=== PATIENT | female | born 1980 | race Caucasian/White ===

== ENCOUNTER 2019-04-22 01:25 | Emergency (ER) | payer BC ==
[2019-04-22] MEDS ORDERED: MORPHINE 4 MG/ML SYR ONE (02:27)
[2019-04-22] MEDS ORDERED: ONDANSETRON 4 MG/2 ML VIAL ONE (02:27)
[2019-04-22 04:29] LABS: Albumin 3.9 g/dL (3.4-5.0); Bilirubin Direct 0.5 mg/dL (0-0.2); Bilirubin Total 1.1 mg/dL (0.2-1.0); Potassium 4.3 mmol/L (3.5-5.1); Protein, Total 7.5 g/dL (6.4-8.2)
[2019-04-22 04:36] LABS: Basophils % 0.3 % (0-1.3); Lymphocytes % 8.3 % (15.3-44.8); MPV 8.7 fL (7.6-11.3); RBC Red Blood Cell Count 4.28 M/uL (3.86-4.86)
[2019-04-22 04:46] LABS: Urine Blood NEGATIVE (NEG); Urine Glucose NEGATIVE (NEG); Urine Protein NEGATIVE (NEG)
[2019-04-22 04:52] LABS: Urine Appearance CLOUDY; Urine Bilirubin NEGATIVE (NEG); Urine Blood NEGATIVE (NEG); Urine Color YELLOW; Urine Glucose NEGATIVE (NEG); Urine Microscopic Reflex ORDER UMIC; Urine Protein NEGATIVE (NEG); Urine Specific Gravity 1.015 (1.005-1.030)
[2019-04-22 04:53] LABS: Urine Amorphous Sediment 2+ /HPF (NONE SEEN); Urine Culture Reflex Order NOT NEEDED
[2019-04-22 04:54] LABS: Urine Bacteria <20 /HPF (<20); Urine RBC NONE SEEN /HPF (NONE SEEN)
--- NOTE | 2019-04-22 08:27 | RAD REPORT ---
EXAM DESCRIPTION: US - Abdomen Exam Limited - 04/22/2019 7:23 am CLINICAL HISTORY: Abdominal pain. COMPARISON: None. FINDINGS: The gallbladder is filled with stones. Gallbladder wall appears mildly thickened The common bile duct was not well visualized but probably is within normal limits in caliber IMPRESSION: Cholelithiasis. Mild thickening of the gallbladder wall may indicate cholecystitis
[2019-04-22] MEDS ORDERED: LORAZEPAM 1 MG TABLET ONE (08:49)
--- NOTE | 2019-04-22 09:20 | ER ---
Nurse's Notes [facility] Name: Negrita Justin Age: 38 yrs Sex: Female : 1980 Arrival Date: 04/22/2019 Time: 01:36 Bed 6 Private MD: Diagnosis: Cholelithiasis Presentation: 04/22 02:00 Presenting complaint: Patient states: abdominal pain (RUQ) started 9 PM last night, I rr5 took ibuprofen 800 mg tablet but it did not relieved it. It gets worse now. I feel nauseated , bloated, and my abdomen is tight. I was diagnosed with gall stone before. denies urine problem and vomiting. 02:00 Transition of care: patient was not received from another setting of care. Onset of rr5 symptoms was April 21, 2019 at 21:00. Risk Assessment: Do you want to hurt yourself or someone else? Patient reports no desire to harm self or others. Initial Sepsis Screen: Does the patient meet any 2 criteria? No. Patient's initial sepsis screen is negative. Does the patient have a suspected source of infection? No. Patient's initial sepsis screen is negative. Care prior to arrival: Medication(s) given: Motrin, 800 mg. 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 - Social history:: Smoking status: Patient/guardian denies using tobacco, Patient/guardian denies using alcohol, street drugs. - Ebola Screening: : Patient negative for fever greater than or equal to 101.5 degrees Fahrenheit, and additional compatible Ebola Virus Disease symptoms Patient denies exposure to infectious person Patient denies travel to an Ebola-affected area in the 21 days before illness onset. Screenin:40 Abuse screen: Denies threats or abuse. Denies injuries from another. Nutritional rr5 screening: No deficits noted. Tuberculosis screening: No symptoms or risk factors identified. Fall Risk IV access (20 points). Total Almaguer Fall Scale indicates No Risk (0-24 pts). Assessment: 02:00 General: Appears in no apparent distress. uncomfortable, Behavior is calm, cooperative, rr5 appropriate for age. 02:00 Pain: Complains of pain in right upper quadrant Pain radiates to back Pain currently is rr5 8 out of 10 on a pain scale. Quality of pain is described as aching, Pain began gradually, Is intermittent. Neuro: Level of Consciousness is awake, alert, obeys commands, Oriented to person, place, time, situation, Appropriate for age. Cardiovascular: Capillary refill < 3 seconds Patient's skin is warm and dry. Respiratory: Airway is patent Respiratory effort is even, unlabored, Respiratory pattern is regular, symmetrical. GI: Abdomen is round Abd is soft and non tender Reports upper abdominal pain, nausea, diagnose with gall stone. : No signs and/or symptoms were reported regarding the genitourinary system. Denies burning with urination, pain. EENT: No signs and/or symptoms were reported regarding the EENT system. Derm: Skin is intact, Skin temperature is warm. Musculoskeletal: Circulation, motion, and sensation intact. Capillary refill < 3 seconds. 03:10 Reassessment: Patient appears in no apparent distress at this time. Patient is alert, rr5 oriented x 3, equal unlabored respirations, skin warm/dry/pink. Patient states feeling better. Patient states symptoms have improved. Pain: Pain currently is 2 out of 10 on a pain scale. 04:00 Reassessment: Patient appears in no apparent distress at this time. Patient is alert, rr5 oriented x 3, equal unlabored respirations, skin warm/dry/pink. reassess by ED provider advised for ultrasound. patient agreed to wait till morning around 0630 for the ultrasound procedure. Patient states feeling better. Patient states symptoms have improved. 04:48 Reassessment: Patient appears in no apparent distress at this time. eyes closed rr5 breathing spontaneously at room air vitally stable. 05:30 Reassessment: Patient appears in no apparent distress at this time. Patient and/or rr5 family updated on plan of care and expected duration. Pain level reassessed. Patient is alert, oriented x 3, equal unlabored respirations, skin warm/dry/pink. 06:40 Reassessment: Patient appears in no apparent distress at this time. Patient and/or rr5 family updated on plan of care and expected duration. Pain level reassessed. Patient is alert, oriented x 3, equal unlabored respirations, skin warm/dry/pink. went to restroom voided freely. awaiting for ultrasound procedure Patient denies pain at this time. Patient states feeling better. Patient states symptoms have improved. 07:40 Reassessment: Patient appears in no apparent distress at this time. Patient and/or tw2 family updated on plan of care and expected duration. Pain level reassessed. Patient is alert, oriented x 3, equal unlabored respirations, skin warm/dry/pink. Patient states feeling better. Patient states symptoms have improved. 08:36 Reassessment: Patient appears in no apparent distress at this time. Patient and/or tw2 family updated on plan of care and expected duration. Pain level reassessed. Patient is alert, oriented x 3, equal unlabored respirations, skin warm/dry/pink. Patient states feeling better. 08:59 Reassessment: provider at bedside at this time. tw2 Vital Signs: 02:00 BP 139 / 92; Pulse 110; Resp 18; Temp 98.6; Pulse Ox 100% ; Weight 79.38 kg; Height 5 rr5 ft. 3 in. (160.02 cm); Pain 8/10; 03:00 BP 113 / 77; Pulse 71; Resp 16; Pulse Ox 100% ; Pain 2/10; rr5 04:00 BP 124 / 78; Pulse 80; Resp 16; Temp 98.5; Pulse Ox 100% on R/A; rr5 04:49 BP 109 / 69; Pulse 69; Resp 15; Pulse Ox 99% ; rr5 06:30 BP 94 / 61; Pulse 65; Resp 17; Pulse Ox 99% ; Pain 0/10; rr5 07:38 BP 117 / 66; Pulse 76; Resp 17; Pulse Ox 100% on R/A; tw2 08:36 BP 108 / 62; Pulse 73; Resp 17; Pulse Ox 100% on R/A; tw2 02:00 Body Mass Index 31.00 (79.38 kg, 160.02 cm) rr5 ED Course: 01:36 Patient arrived in ED. ds1 02:00 Arm band placed on right wrist. rr5 02:05 Patient has correct armband on for positive identification. Placed in gown. Bed in low rr5 position. Call light in reach. Side rails up X2. Pulse ox on. NIBP on. 02:30 Inserted saline lock: 22 gauge in right antecubital area, using aseptic technique. rr5 ,using aseptic technique. by anny dispensary technician Blood collected. 03:25 Emiliano Aparicio, RN is Primary Nurse. rr5 03:28 Triage completed. rr5 03:33 Eduardo Colindres MD is Attending Physician. gs 07:06 Patient taken to ultrasound. via wheelchair. sv 07:09 Abdomen Limited US In Process Unspecified. EDMS 08:37 Primary Nurse role handed off by Emiliano Aparicio, RN tw2 08:37 Isabell Hudson RN is Primary Nurse. tw2 Administered Medications: 02:38 Drug: Zofran 4 mg Route: IVP; Site: right antecubital; rr5 03:40 Follow up: Response: No adverse reaction rr5 02:40 Drug: morphine 4 mg {Note: rass 0.} Route: IVP; Site: right antecubital; rr5 03:40 Follow up: Response: No adverse reaction; RASS: Alert and Calm (0) rr5 Outcome: 09:19 Discharge ordered by . ma2 09:43 Patient left the ED. ss Signatures: Dispatcher [employer] Kathy Abernathy, RN Kamla Brown RN RN Cecille Goncalves ds1 Saige Castillo RN RN Isabell Hudson RN RN tw2 Eduardo Colindres MD MD gs Alzahri, Mohammad, MD MD [facility] Emiliano Aparicio, KALEIGH RN rr5 Corrections: (The following items were deleted from the chart) 03:27 03:27 Presenting complaint: [facility]
--- NOTE | 2019-04-22 09:20 | EDPHYS ---
Physician Documentation [facility] Name: Negrita Justin Age: 38 yrs Sex: Female : 1980 Arrival Date: 04/22/2019 Time: 01:36 Bed 6 Private MD: ED Physician Eduardo Colindres HPI: 04/22 04:21 This 38 yrs old Female presents to ER via Ambulatory with complaints of gs Abdominal Pain. 04:21 The patient presents with abdominal pain in the right upper quadrant. Onset: The gs symptoms/episode began/occurred last night. The symptoms do not radiate. Associated signs and symptoms: Pertinent positives: nausea. The symptoms are described as sharp. Modifying factors: The symptoms are alleviated by nothing, the symptoms are aggravated by food. Severity of pain: At its worst the pain was severe in the emergency department the pain has improved mildly. The patient has experienced similar episodes in the past, a few times. The patient has not recently seen a physician. 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 - Social history:: Smoking status: Patient/guardian denies using tobacco, Patient/guardian denies using alcohol, street drugs. - Ebola Screening: : Patient negative for fever greater than or equal to 101.5 degrees Fahrenheit, and additional compatible Ebola Virus Disease symptoms Patient denies exposure to infectious person Patient denies travel to an Ebola-affected area in the 21 days before illness onset. ROS: 04:21 All other systems are negative. gs Exam: 04:21 Head/Face: Normocephalic, atraumatic. Eyes: Pupils equal round and reactive to light, gs extra-ocular motions intact. Lids and lashes normal. Conjunctiva and sclera are non-icteric and not injected. Cornea within normal limits. Periorbital areas with no swelling, redness, or edema. ENT: Nares patent. No nasal discharge, no septal abnormalities noted. Tympanic membranes are normal and external auditory canals are clear. Oropharynx with no redness, swelling, or masses, exudates, or evidence of obstruction, uvula midline. Mucous membranes moist. Neck: Trachea midline, no thyromegaly or masses palpated, and no cervical lymphadenopathy. Supple, full range of motion without nuchal rigidity, or vertebral point tenderness. No Meningismus. Chest/axilla: Normal chest wall appearance and motion. Nontender with no deformity. No lesions are appreciated. Cardiovascular: Regular rate and rhythm with a normal S1 and S2. No gallops, murmurs, or rubs. Normal PMI, no JVD. No pulse deficits. Respiratory: Lungs have equal breath sounds bilaterally, clear to auscultation and percussion. No rales, rhonchi or wheezes noted. No increased work of breathing, no retractions or nasal flaring. Back: No spinal tenderness. No costovertebral tenderness. Full range of motion. Skin: Warm, dry with normal turgor. Normal color with no rashes, no lesions, and no evidence of cellulitis. MS/ Extremity: Pulses equal, no cyanosis. Neurovascular intact. Full, normal range of motion. Neuro: Awake and alert, GCS 15, oriented to person, place, time, and situation. Cranial nerves II-XII grossly intact. Motor strength 5/5 in all extremities. Sensory grossly intact. Cerebellar exam normal. Normal gait. 04:21 Constitutional: The patient appears alert, awake. 04:21 Abdomen/GI: Palpation: moderate abdominal tenderness, in the right upper quadrant, rebound tenderness, is not appreciated. Vital Signs: 02:00 BP 139 / 92; Pulse 110; Resp 18; Temp 98.6; Pulse Ox 100% ; Weight 79.38 kg; Height 5 rr5 ft. 3 in. (160.02 cm); Pain 8/10; 03:00 BP 113 / 77; Pulse 71; Resp 16; Pulse Ox 100% ; Pain 2/10; rr5 04:00 BP 124 / 78; Pulse 80; Resp 16; Temp 98.5; Pulse Ox 100% on R/A; rr5 04:49 BP 109 / 69; Pulse 69; Resp 15; Pulse Ox 99% ; rr5 06:30 BP 94 / 61; Pulse 65; Resp 17; Pulse Ox 99% ; Pain 0/10; rr5 07:38 BP 117 / 66; Pulse 76; Resp 17; Pulse Ox 100% on R/A; tw2 08:36 BP 108 / 62; Pulse 73; Resp 17; Pulse Ox 100% on R/A; tw2 02:00 Body Mass Index 31.00 (79.38 kg, 160.02 cm) rr5 MDM: 03:33 Patient medically screened. 04:21 Differential diagnosis: cholecystitis, Cholelithiasis, gastroesophageal reflux disease, gs Peptic Ulcer Disease. Data reviewed: vital signs, nurses notes, lab test result(s), radiologic studies. Counseling: I had a detailed discussion with the patient and/or guardian regarding: the historical points, exam findings, and any diagnostic results supporting the discharge/admit diagnosis. Response to treatment: the patient's symptoms have markedly improved after treatment. 09:18 ED course: lab unremarkable except elevated alk phos and alt, she will f/u with pcp, no ma2 acute bell . 04/22 03:25 Order name: Urine Dipstick--Ancillary (enter results); Complete Time: 06:57 mw2 04/22 03:25 Order name: Urine --Ancillary (enter results); Complete Time: 06:57 mw2 04/22 04:01 Order name: Abdomen Limited US 04/22 04:31 Order name: Basic Metabolic Panel; Complete Time: 06:57 EDMS 04/22 04:31 Order name: Liver (Hepatic) Function; Complete Time: 06:57 EDMS 04/22 04:31 Order name: Lipase; Complete Time: 06:57 EDMS 04/22 04:39 Order name: CBC with Automated Diff EDWA 04/22 04:40 Order name: Urinalysis; Complete Time: 06:57 EDMS 04/22 04:55 Order name: Urine Microscopic Only; Complete Time: 06:57 EDMS 04/22 03:32 Order name: IV Saline Lock; Complete Time: 03:32 rr5 04/22 03:32 Order name: Labs collected and sent; Complete Time: 03:33 rr5 04/22 04:27 Order name: Urine Dipstick-Ancillary (obtain specimen); Complete Time: 04:27 rr5 04/22 04:27 Order name: Urine Test (obtain specimen); Complete Time: 04:27 rr5 Administered Medications: 02:38 Drug: Zofran 4 mg Route: IVP; Site: right antecubital; rr5 03:40 Follow up: Response: No adverse reaction rr5 02:40 Drug: morphine 4 mg {Note: rass 0.} Route: IVP; Site: right antecubital; rr5 03:40 Follow up: Response: No adverse reaction; RASS: Alert and Calm (0) rr5 Disposition: 04/22/19 09:19 Discharged to Home. Impression: Cholelithiasis. - Condition is Stable. - Prescriptions for Tylenol- Codeine #3 300-30 mg Oral Tablet - take 2 tablet by ORAL route every 6 hours As needed; 30 tablet. - Work release form, Medication Reconciliation Form, Thank You Letter, Antibiotic Education, Prescription Opioid Use form. - Follow up: Private Physician; When: Tomorrow; Reason: Continuance of care. Signatures: Dispatcher [employer] EDSaige Lowery RN RN ss Eduardo Colindres MD MD gs Alzahri, Mohammad, MD MD ma2 Emiliano Aparicio RN RN rr5 Corrections: (The following items were deleted from the chart) 04:54 04:25 BASIC METABOLIC PANEL+C.LAB.BRZ ordered. EDMS EDMS 04:54 04:25 CBC+H.LAB.BRZ ordered. EDMS EDMS 04:54 04:25 Creatinine for Radiology+C.LAB.BRZ ordered. EDMS EDMS 04:54 04:25 HEPATIC FUNCTION+C.LAB.BRZ ordered. EDMS EDMS 04:54 04:25 LIPASE+C.LAB.BRZ ordered. EDWA EDMS 09:43 09:19 04/22/2019 09:19 Discharged to Home. Impression: Cholelithiasis. Condition is ss Stable. Forms are Work release form, Medication Reconciliation Form, Thank You Letter, Antibiotic Education, Prescription Opioid Use. Follow up: Private Physician; When: Tomorrow; Reason: Continuance of care. ma2
== END 2019-04-22 09:43 | disposition home or self-care (01) ==
LOC: ER 01:25
DX: K80.20 Calculus of gallbladder without cholecystitis without obstruction (principal)
CPT/HCPCS: 85025; 80048; 36415; 81025; 80076; 83690; 76705; J2405; 81003; 81015; 96374; 96375; 99284

== ENCOUNTER 2019-05-01 07:03 | Day surgery (SDC) | payer BC ==
[2019-04-30 14:50] LABS: Absolute Lymphocytes (CBC) 2.1 K/uL (0.7-4.9); Basophils % 0.4 % (0-1.3); Hematocrit 42.9 % (36.0-45.0); MPV 8.9 fL (7.6-11.3); RBC Red Blood Cell Count 4.63 M/uL (3.86-4.86)
[2019-04-30 15:15] LABS: Potassium 4.3 mmol/L (3.5-5.1)
[2019-04-30 15:35] LABS: Albumin 4.3 g/dL (3.4-5.0); Bilirubin Direct 0.2 mg/dL (0-0.2); Bilirubin Total 0.6 mg/dL (0.2-1.0); Protein, Total 8.2 g/dL (6.4-8.2)
[2019-05-01] MEDS ORDERED: Ringers Lactate 1,000 ML IV ONE (07:38)
[2019-05-01] MEDS ORDERED: CEFOXITIN/SWI 1gm 1 GM/10 ML SYR ONE (07:38)
[2019-05-01] MEDS ORDERED: FENTANYL CITR 100 MCG/2 ML ONE ×2 (07:52→08:48)
[2019-05-01] MEDS ORDERED: ROCURONIUM 50 MG/5 ML VIAL IV ONE (07:53)
[2019-05-01] MEDS ORDERED: PROPOFOL 200 MG/20 ML VIAL IV ONE (07:53)
[2019-05-01] MEDS ORDERED: MIDAZOLAM HCL 2 MG/2 ML INJ ONE (07:53)
[2019-05-01] MEDS ORDERED: LIDOCAINE 1% MPF 5 ML VIAL ONE (07:53)
[2019-05-01] MEDS ORDERED: ONDANSETRON 4 MG/2 ML VIAL ONE ×2 (08:04→08:44)
[2019-05-01] MEDS ORDERED: GLYCOPYRROLATE 0.2 MG/ML SYR ONE (08:43)
[2019-05-01] MEDS ORDERED: KETOROLAC 30 MG/ML INJ ONE (08:43)
[2019-05-01] MEDS ORDERED: NEOSTIGMINE 1 MG/ML -10 ML VIAL ONE (08:44)
[2019-05-01] MEDS ORDERED: Mastisol Adhesive Liq ONE (09:09)
[2019-05-01] MEDS ORDERED: PROMETHAZINE 25 MG/ML VIAL ONE (09:34)
[2019-05-01] MEDS: HYDROMORPHONE HCL 1 MG/ML INJ ONE ×4 (09:36→09:58)
[2019-05-01] MEDS ORDERED: HYDROCODONE/APAP 7.5/325 MG TAB ONE (10:47)
--- NOTE | 2019-05-01 21:42 | OP ---
Date of Procedure: 05/01/2019 Surgeon: Florentin Borrego MD University Counselor: TOM Sands Preoperative Diagnoses: Chronic cholecystitis and cholelithiasis. Postoperative Diagnoses: Chronic cholecystitis and cholelithiasis. Procedure: Laparoscopic cholecystectomy. Estimated Blood Loss: Minimal. Specimen: Gallbladder. Findings: As above. Anesthesia: General. Complications: None. Disposition: Patient tolerated the procedure, in stable condition, and taken to Recovery in good gen eral condition. Procedure In Detail: Patient was brought to the OR and placed in the supine position. General anest hesia was begun. Patient was prepped and draped in the usual sterile fashion. Marcaine 0.5% was inf iltrated locally. A 15-blade was used to make a 1 cm supraumbilical midline incision. Subcutaneous tissue divided. Fascia was identified and divided. #1 Vicryl stay suture was placed. Peritoneal ca vity was entered with sharp and blunt dissection. A 12 mm trocar was placed into the peritoneal cavi ty under direct vision. Pneumoperitoneum was established. Three 5 mm trocars placed, 1 in the epiga strium just to the right of midline, 2 in the right subcostal region. Laparoscopy revealed chronic i nflammation of the gallbladder. Fundus retracted superiorly. Infundibulum was identified and retrac daniel inferolaterally. Cystic duct and cystic artery were clearly identified with blunt dissection. C lips were placed. Both structures divided. Cautery was used to remove the gallbladder from the live r bed. Bleeding on the liver bed was controlled with cautery. The gallbladder was retrieved through the umbilicus via an EndoCatch bag. Right upper quadrant was irrigated. Effluent was clear. No ev idence of bleeding or bile leakage appreciated. Subsequently, all trocars were removed under direct vision. #1 Vicryl was used to close the fascial defect. Subcutaneous wound was irrigated. Bleeding controlled with cautery. 3-0 chromic was used to approximate the subcutaneous tissue and close the skin. Sterile dressing was applied. Patient was awakened and taken to Recovery in good general cond ition. /MODL Voice ID: [id number] Report ID: [id number]
--- NOTE | 2019-05-01 21:48 | DS ---
Date of Discharge: 05/01/2019 Hospital Course: The patient will go to Day Surgery and home when stable. Disposition: Home. Condition: Stable. Discharge Instructions: Resume home meds and diet. Activity as tolerated. No heavy lifting. Remov e outer dressing in 2 days. Shower. Keep wound clean and dry. Keep Steri-Strips on at all times. Tylenol No. 3 one tablet p.o. q.4 p.r.n. pain. Incentive spirometry as ordered. MITZY/EMMANUEL Voice ID: [id number] Report ID: [id number]
== END 2019-05-01 12:17 | disposition home or self-care (01) ==
LOC: OR 07:03
PROVIDERS: ATTEND Surgery
PROC: 0FT44ZZ Resection of Gallbladder, Percutaneous Endoscopic Approach (ICD-10-PCS; principal; 2019-05-01 08:45)
DX: K80.10 Calculus of gallbladder with chronic cholecystitis without obstruction (principal)
CPT/HCPCS: 85025; 80048; 36415; 82150; 84703; 80076; 88304; 47562; J2704; J2710; J2550; J2250; J3010 ×2; J1170 ×2; J2405 ×2

== ENCOUNTER 2022-06-09 13:27 | Emergency (ER) | payer BC ==
--- OUTSIDE RECORDS SUMMARY | 2022-06-09 13:30 | XMS REPORT | Continuity of Care Document ---
:1980 Author Organization [facility] t Address [address] [place] [address] Care Team Providers Name Role Phone KHADIJAH MOCTEZUMA Primary Care Physician Unavailable SHASTA LASSITER Attending Clinician Unavailable Shasta Lassiter MD Attending Clinician [phone] RUBEN NAVARRO Attending Clinician Unavailable Ruben Mercer Attending Clinician NATY Attending Clinician Unavailable RUBEN NAVARRO Admitting Clinician Unavailable NATY Admitting Clinician Unavailable Payers Payer Name Policy Type Policy Number Effective Date Expiration Date S tera BCBS [facility] [id number] 2018 00:00:00 [place] [id number] 2018 00:[place]:00 [place] Problems Condition Condition Condition Status Onset Resolution Last Treating Co mments Source Name Details Category Date Date Treatment Clinician Date Uterine Uterine Problem Active [place] leiomyoma Leiomyoma 10-22 da 00:00: [facility] No known No known Disease Unive rs active active ity of problems problems [facility] Allergies, Adverse Reactions, Alerts Allergy Allergy Status Severity Reaction(s) Onset Inactive Treating Comm ents Source Name Type Date Date Clinician NO KNOWN Drug Active Univers ALLERGIE Class ity of S [facility] Social History Social Habit Start Date Stop Date Quantity Comments Source Exposure to 2022-04-10 2022-04-20 Unable to assess Univers ity of SARS-CoV-2 00:00:00 10:49:00 [place] [facility] (event) Branch Sex Ass[birth year] At [birth year] Universit y of 00:00:00 00:00:00 [facility] Smoking Status Start Date Stop Date Source Never Smoker Saige [facility] Tobacco smoking consumption [facility] Medical unknown Branch Medications Ordered Filled Start Stop Current Ordering Indication Dosage Frequency Signature Comments Components Source Medication Medication Date Date Medication? Clinician (SIG) Name Name NaCl 0.9% No 1000mL at 999 Uni vers (NS) bolus 04-20 mL/hr, ity of infusion 16:15: 17:26 1,000 mL, [place] as 1,000 mL 00 :00 IV Medical Infusion, Branch ONCE, 1 dose, On Sat04/20/22 at 1115, STAT acetaminoph 2021- No 1000mg 1,000 mg, Univers en 04-20 Oral, ity of (TYLENOL) 16:15: 16:27 ONCE, 1 [place] tablet 00 :00 dose, On Medical 1,000 mg Fri Branch 04/20/22 at 1115, ELIJAH diphenhydrA 2021- No 25mg 25 mg, Uni vers MINE 04-20 Slow IV ity of (BENADRYL) 16:15: 16:24 Push, [place] injection 00 :00 ONCE, 1 Medical 25 mg dose, On Branch Sat04/20/22 at 1115, STAT metoclopram 2021- No 10mg 10 mg, Uni vers lisa HCl 04-20 Slow IV ity of (REGLAN) 16:15: 16:26 Push, [place] injection 00 :00 ONCE, 1 Medical 10 mg dose, On Branch Sat04/20/22 at 1115, ELIJAH dexamethaso 2020-08- No 10mg 10 mg, Uni vers ne 1-10 11-10 Intramuscu ity of (DECADRON 20:30: 21:35 lar, ONCE, [place] PHOSPHATE) 00 :00 1 dose, On Med ical injection Wed Branch 10 mg 07/05/21 at 1430, STAT methocarbam 2020-08 Yes [id number] 500mg Take 1 Univers oL 1-10 tablet by ity of (ROBAXIN) 00:00: mouth 4 [place] 500 mg 00 (four) Medical tablet times Branch daily as needed for Pain (scale 7-10). Diclofenac 2020-08 Yes [id number] Apply to Univers Sodium 1-10 area(s) 2 ity of (VOLTAREN) 00:00: (two) [place] 1 % gel 00 times Medical daily. Branch ibuprofen 2020-08 Yes [id number] 800mg Take 1 U nivers 800 mg 1-10 tablet by ity of tablet 00:00: mouth [place] 00 every 8 Medical (eight) Branch hours as needed for Pain (scale 4-6). methocarbam 2020-08 Yes [id number] 500mg Take 1 Univers oL 1-10 tablet by ity of (ROBAXIN) 00:00: mouth 4 [place] 500 mg 00 (four) Medical tablet times Branch daily as needed for Pain (scale 7-10). Diclofenac 2020-08 Yes [id number] Apply to Univers Sodium 1-10 area(s) 2 ity of (VOLTAREN) 00:00: (two) [place] 1 % gel 00 times Medical daily. Branch ibuprofen 2020-08 Yes [id number] 800mg Take 1 U nivers 800 mg 1-10 tablet by ity of tablet 00:00: mouth [place] 00 every 8 Medical (eight) Branch hours as needed for Pain (scale 4-6). celecoxib celecoxib No celecoxib [place] 100 mg 100 mg 100 mg da capsule capsule capsule [facility] TAKE 1 TAKE 1 TAKE 1 al CAPSULE BY CAPSULE BY CAPSULE BY Health MOUTH TWICE MOUTH TWICE MOUTH Outreac DAILY DAILY TWICE h DAILY Program lorazepam lorazepam No lorazepam [place] 0.5 mg 0.5 mg 0.5 mg da tablet Take tablet Take tablet [facility] 2 tablets 2 tablets Take 2 al by oral by oral tablets by Hea lth route as route as oral route O [facility] needed. needed. as needed. h Program Mirena 20 Mirena 20 No 1device Mirena 20 [place] mcg/24 mcg/24 (s) mcg/24 da hours (7 hours (7 hours (7 Epi scop yrs) 52 mg yrs) 52 mg yrs) 52 mg al intrauterin intrauterin intrauteri Health e device e device ne device Ou treac Take 1 Take 1 Take 1 h device by device by device by Program intrauterin intrauterin intrauteri e route. e route. ne route. sumatriptan sumatriptan No sumatripta [place] 100 mg 100 mg n 100 mg da tablet TK 1 tablet TK 1 tablet TK [facility] T PO PRN T PO PRN 1 T PO PRN a l FOR FOR FOR Health HEADACHE. HEADACHE. HEADACHE. Outreac MAXIMUM 1 T MAXIMUM 1 T MAXIMUM 1 h PER DAY. PER DAY. T PER DAY. P rogram Vitamin D Vitamin D No Vitamin D [place] [facility] Vital Signs Vital Name Observation Time Observation Value Comments Source Systolic blood 2022-04-20 15:51:00 148 mm[Hg] Univer sity of [facility] Diastolic blood 2022-04-20 15:51:00 105 mm[Hg] [facility] rate 2022-04-20 15:51:00 105 /min [facility] Body temperature 2022-04-20 15:51:00 36.44 Mel [facility] Respiratory rate 2022-04-20 15:51:00 18 /min [facility] Body weight 2022-04-20 15:51:00 85.276 kg [facility] Oxygen saturation in 2022-04-20 15:51:00 99 /min University of Arterial blood by [facility] Pulse oximetry [place] Systolic blood 2021-07-05 21:33:39 150 mm[Hg] Univer sity of [facility] Diastolic blood 2021-07-05 21:33:39 95 mm[Hg] [facility] rate 2021-07-05 21:33:39 87 /[facility] rate 2021-07-05 21:33:39 16 /min [facility] Oxygen saturation in 2021-07-05 21:33:39 100 /min [place] of Arterial blood by [facility] Pulse oximetry [place] Body temperature 2021-07-05 18:28:00 37.17 Mel [facility] Body weight 2021-07-05 18:28:00 85.276 [facility] BP Diastolic 2021-07-04 00:00:00 101 mm[Hg] [place] [facility] Height 2021-07-04 00:00:00 63 [in_i] [place] [facility] BMI (Body Mass 2021-07-04 00:00:00 33.5 kg/m2 [place] financial 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 Index) [facility] BP Systolic 2021-07-04 00:00:00 143 mm[Hg] [place] [facility] Body Weight 2021-07-04 00:00:00 189 [lb_av] [place] [facility] Height 2020-10-17 00:00:00 63 [in_i] [place] [facility] BMI (Body Mass 2020-10-17 00:00:00 34.4 kg/m2 [place] financial 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 Index) [facility] BP Systolic 2020-10-17 00:00:00 134 mm[Hg] [place] [facility] Body Weight 2020-10-17 00:00:00 194 [lb_av] [place] [facility] BP Diastolic 2020-10-17 00:00:00 90 mm[Hg] [place] [facility] Height 2020-06-30 00:00:00 63 [in_i] [place] [facility] BMI (Body Mass 2020-06-30 00:00:00 34.5 kg/m2 [place] financial 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 Index) [facility] Body Weight 2020-06-30 00:00:00 195 [lb_av] [place] [facility] Procedures Procedure Date / Time Performing Clinician Source Performed CONSENT/REFUSAL FOR 2022-04-20 15:49:42 [facility] DIAGNOSIS AND TREATMENT [facility] XR CERVICAL SPINE 3 VW 2021-07-05 19:34:59 Ruben Navarro [facility] NOTICE OF PRIVACY 2021-07-05 17:42:01 Doctor Luigi, [facility] PRACTICES [facility] MAMMO, screening, digital, 2021-07-04 00:00:00 [place] [facility] US, transvaginal 2020-10-17 00:00:00 [facility] MAMMO, screening, 2020-06-30 00:00:00 [place] [facility] Cholecystectomy 2019-04-26 00:00:00 [place] [facility] Delivery [place] [facility] Plan of Care Planned Activity Planned Date Details Comments Source Diagnostic Test 2021-07-04 cytology report, thin [place] Pending 00:00:00 prep, smear or [facility] scraping, cervical or Outrea ch Program vaginal [code = cytology report, thin prep, smear or scraping, cervical or vaginal] Diagnostic Test 2021-07-04 CBC w/ auto diff [place] Pending 00:00:00 [code = CBC w/ auto [facility] diff] [facility] Diagnostic Test 2021-07-04 CMP, serum or plasma [place] Pending 00:00:00 [code = CMP, serum or [facility] plasma] Outreach [facility] Diagnostic Test 2021-07-04 HIV 1+2 AB + HIV 1 [place] financial 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 Pending 00:00:00 p24 Ag, qualitative [facility] immunoassay, serum Outreach Program [code = HIV 1+2 AB + HIV 1 p24 Ag, qualitative immunoassay, serum] Diagnostic Test 2021-07-04 RPR (rapid plasma [place] Pending 00:00:00 reagin), serum [code [facility] = RPR (rapid plasma Outreach Program reagin), serum] Diagnostic Test 2021-07-04 HBsAg (hepatitis B [place] financial 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 Pending 00:00:00 surface Ag), EIA, [facility] serum [code = HBsAg [facility]reach Program (hepatitis B surface Ag), EIA, serum] Diagnostic Test 2021-07-04 TSH + free T4, serum [place] Pending 00:00:00 [code = TSH + free [facility] T4, serum] Outreach Progra m Diagnostic Test 2021-07-04 lipid panel, serum [place] financial 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 Pending 00:00:00 [code = lipid panel, [facility] serum] Outreach Pro[facility] Diagnostic Test 2021-07-04 vitamin D, [place] Pending 00:00:00 25-hydroxy, total, [facility] serum [code = vitamin Outrea ch Program D, 25-hydroxy, total, serum] Diagnostic Test 2021-07-04 HbA1c (hemoglobin [place] Pending 00:00:00 A1c), blood [code = [facility] HbA1c (hemoglobin Outreach P rogram A1c), blood] Encounters Start End Encounter Admission Attending Care Care Encounter Source Date/Time Date/Time Type Type Clinicians Facility Department ID 2022-04-20 2022-04-20 [facility] [id number] Univers 10:53:00 12:58:00 , SHASTA [facility] 2022-04-20 2022-04-20 [facility] [id number] Univers 10:53:00 12:58:00 , Shasta AGUIRRE [id number] i ty of Georgina VERGARA [id number] [facility] [id number] [place] [id number] Branch 2021-07-05 2021-07-[address] [facility] ERT [id number] Univers 12:30:00 16:08:00 RUBEN martinez [facility] 2021-07-05 2021-07-05 Emergency [facility] [id number] Univers 12:30:00 16:08:00 Ruben AGUIRRE [id number] i ty JAI [id number] [facility] [id number] [place] [id number] Branch 2021-07-04 2021-07-04 Outpatient EMANUEL_YANIV MARIE [id number] [place] 11:39:00 11:39:00 SSA [id number] [facility] 2021-07-04 2021-07-04 Thea MARIE [place] - [id number] M [place] 00:00:00 00:00:00 Sabiha Posada, [facility] CUSTOMER ADVISOR SPECIALIST: [address] [facility] [address], MARKETING OPERATIONS COORDIN[place] [facility] [place] [id number] Progr am , Ph. 2021-07-02 2021-07-02 Outpatient LISTER_MELI MEHOP MEHOP [id number] [place] 12:10:00 12:10:00 SSA [id number] [facility] 2021-05-03 2021-05-03 Outpatient LISTER_MELI MEHOP MEHOP [id number] [place] 12:08:00 12:08:00 SSA [id number] [facility] 2020-10-17 2020-10-17 Outpatient LISTER_MELI MEHOP MEHOP 104 [place] 02:21:00 02:21:00 SSA [id number] [facility] 2020-10-17 2020-10-17 Thea MARIE [place] - [id number] M [place] 00:00:00 00:00:00 Sabiha Saige Posada, [facility] CUSTOMER ADVISOR SPECIALIST: [address], MARKETING OPERATIONS [place]ORDIN[place] [facility] [place] [id number] Progr am , Ph. 2020-06-30 2020-06-30 Outpatient LISTER_MELI MEHOP MEHOP [place] 04:46:00 04:46:00 SSA [id number] [facility] 2020-06-30 2020-06-30 Outpatient LISTER_MELI MEHOP MEHOP 56 [place] 04:46:00 04:46:00 SSA [id number] da [facility] 2020-06-30 2020-06-30 Thea MARIE [place] - [id number] M at[place] 00:00:00 00:00:00 Sabiha Saige Posada, [facility] CUSTOMER ADVISOR SPECIALIST: [address], MARKETING OPERATIONS [place]IN[place] [facility] [place] [id number] Progr am , Ph. 2020-05-31 2020-05-31 Outpatient LISTER_MELI MEHOP MEHOP [id number] [place] 01:23:00 01:23:00 [facility] [id number] da [facility] Program Results This patient has no known results.
[2022-06-09] MEDS ORDERED: KETOROLAC 30 MG/ML INJ ONE (15:08)
[2022-06-09] MEDS ORDERED: HYDROCODONE/APAP 10/325 TAB ONE (15:08)
--- NOTE | 2022-06-09 15:14 | RAD REPORT ---
EXAM DESCRIPTION: CTSpine Lumbar Wo Con06/09/2022 3:01 pm CLINICAL HISTORY: Back pain with radiculopathy COMPARISON: None TECHNIQUE: Computed axial tomography lumbar spine was obtained with coronal and sagittal reconstruct ion. All CT scans are performed using dose optimization technique as appropriate and may include automated exposure control or mA/KV adjustment according to patient size. FINDINGS: No fracture is seen. No dislocation is noted. Small disc bulge L4-5. Small right paracentral disc herniation suspected L5-S1. IMPRESSION: Negative for a lumbar fracture. Small right paracentral disc herniation is suspected L5-S1. Nonemergent MRI is recommended for furthe r evaluation
--- NOTE | 2022-06-09 15:15 | RAD REPORT ---
EXAM DESCRIPTION: RADSacrum And Ggeyrf8106/09/2022 2:53 pm CLINICAL HISTORY: Back pain FINDINGS: No fracture is seen
[2022-06-09 16:10] LABS: Urine Blood Trace-lysed (Negative); Urine Glucose Negative (Negative); Urine Protein Negative (Negative); Urine Specific Gravity 1.015 (1.005-1.030); Urine pH 5.5 (5.0-7.0)
[2022-06-09 16:32] LABS: Urine Bacteria <20 /HPF (<20); Urine Mucus Slight /HPF (None Seen); Urine WBC Clump Rare /HPF (None Seen)
[2022-06-09] MEDS ORDERED: dexAMETHasone 10 MG/ML VIAL ONE (16:41)
[2022-06-09 16:43] LABS: Urine Specific Gravity/Preg 1.015 (1.005-1.030)
--- NOTE | 2022-06-09 16:44 | ER ---
Nurse's Notes [facility] Name: Negrita Justin Age: 41 yrs Sex: Female : 1980 Arrival Date: 06/09/2022 Time: 13:32 Bed 17 Private MD: Diagnosis: Low back pain Presentation: 06/09 14:02 Chief complaint: Patient states: "I have been seeing a chiropractor weekly for low back hb pain, today it got way worse after moving a piece of furniture." Reports severe low back pain that radiates to bilateral upper thighs and difficulty urinating. Coronavirus screen: At this time, the client does not indicate any symptoms associated with coronavirus-19. Ebola Screen: No symptoms or risks identified at this time. Initial Sepsis Screen: Does the patient meet any 2 criteria? No. Patient's initial sepsis screen is negative. Does the patient have a suspected source of infection? No. Patient's initial sepsis screen is negative. Risk Assessment: Do you want to hurt yourself or someone else? Patient reports no desire to harm self or others. Onset of symptoms was June 09, 2022. 14:02 Method Of Arrival: Wheelchair hb 14:02 Acuity: ZURI 3 hb Historical: - Allergies: 14:04 No Known Allergies; hb - PMHx: 14:04 gall stone; hb - PSHx: 14:04 section; Cholecystectomy; hb - Immunization history:: Adult Immunizations up to date. - Social history:: Smoking status: Patient denies any tobacco usage or history of. Screenin:36 Abuse screen: Denies threats or abuse. Denies injuries from another. Nutritional mb8 screening: No deficits noted. Tuberculosis screening: No symptoms or risk factors identified. Fall Risk None identified. Assessment: 14:35 Pain: Complains of pain in sacrum Pain currently is 10 out of 10 on a pain scale. mb8 Quality of pain is described as aching, Is continuous. Neuro: No deficits noted. Cardiovascular: No deficits noted. Respiratory: No deficits noted. GI: No deficits noted. : No deficits noted. Musculoskeletal: Circulation, motion, and sensation intact. Capillary refill < 3 seconds, Range of motion: intact in all extremities, Tenderness present in sacrum. 16:23 Reassessment: Patient and/or family updated on plan of care and expected duration. Pain mb8 level reassessed. Patient is alert, oriented x 3, equal unlabored respirations, skin warm/dry/pink. Patient still in pain when moving, BUTTONER aware. Vital Signs: 14:02 BP 155 / 76; Pulse 105; Resp 16; Temp 98.4; Pulse Ox 100% on R/A; Weight 85.28 kg; hb Height 5 ft. 3 in. (160.02 cm); Pain 10/10; 16:23 BP 128 / 86; Pulse 81; Resp 16; Pulse Ox 99% ; Pain 8/10; mb8 14:02 Body Mass Index 33.30 (85.28 kg, 160.02 cm) hb ED Course: 13:32 Patient arrived in ED. am2 13:35 Ellyn Quevedo FNP-C is PHCP. kb 13:35 Giorgio Parra MD is Attending Physician. kb 14:04 Triage completed. hb 14:04 Arm band placed on. hb 14:28 Skip Beauchamp, RN is Primary Nurse. mb8 14:36 Patient has correct armband on for positive identification. Bed in low position. Call mb8 light in reach. Side rails up X2. Client placed on continuous cardiac and pulse oximetry monitoring. NIBP monitoring applied. 14:36 No provider procedures requiring assistance completed. mb8 14:54 Sacrum And Coccyx XRAY In Process Unspecified. EDMS 15:03 CT Lumbar Spine Wo Con In Process Unspecified. EDMS 17:25 Patient did not have IV access during this emergency room visit. mb8 Administered Medications: 15:10 Drug: Ketorolac 30 mg Route: IM; Site: right deltoid; mb8 16:37 Follow up: Response: No adverse reaction mb8 15:10 Drug: [place] (HYDROcodone-acetaminophen) 10 mg-325 mg 1 tabs Route: PO; mb8 16:37 Follow up: Response: No adverse reaction mb8 16:47 Drug: Decadron (dexamethasone) 10 mg Route: IM; Site: left ventrogluteal; kc6 Medication: 14:36 VIS not applicable for this client. mb8 Outcome: 16:43 Discharge ordered by . kb 17:25 Discharged to home ambulatory. mb8 17:25 Condition: stable 17:25 Discharge instructions given to patient, Instructed on discharge instructions, follow up and referral plans. no drinking with medication, no driving heavy equipment, medication usage, Demonstrated understanding of instructions, follow-up care, medications, Prescriptions given X 2. 17:25 Patient left the ED. mb8 Signatures: Dispatcher [employer] EDMS Ellyn Quevedo, NREMT-C BETO-Ciara Pastor, RN RN Brandie Donahue Kaitlyn RN RN kc6 Skip Beauchamp RN RN mb8
--- NOTE | 2022-06-09 16:44 | EDPHYS ---
Physician Documentation [facility] Name: Negrita Justin Age: 41 yrs Sex: Female : 1980 Arrival Date: 06/09/2022 Time: 13:32 Bed 17 Private MD: ED Physician Giorgio Parra HPI: 06/09 15:07 This 41 yrs old Female presents to ER via Wheelchair with complaints of Back Injury, kb Back Pain. 15:07 The patient presents with pain that is acute. The symptoms are located in the coccyx kb area. Onset: The symptoms/episode began/occurred and became worse this morning. The pain does not radiate. Associated signs and symptoms: The patient has no apparent associated signs or symptoms. The problem was sustained when lifting. Modifying factors: The patient symptoms are alleviated by nothing, the patient symptoms are aggravated by any movement. Severity of symptoms: At their worst the symptoms were moderate, in the emergency department the symptoms are unchanged. The patient has not experienced similar symptoms in the past. The patient has not recently seen a physician. Pt states she has something going on with her sacrum that she sees a chiropractor for once a week. States she was lifting a couch this morning by bending over at the back and started having increased pain. Now has increased pain with movement. . Historical: - Allergies: 14:04 No Known Allergies; hb - PMHx: 14:04 gall stone; hb - PSHx: 14:04 section; Cholecystectomy; hb - Immunization history:: Adult Immunizations up to date. - Social history:: Smoking status: Patient denies any tobacco usage or history of. ROS: 15:06 Constitutional: Negative for fever, chills, and weight loss. kb 15:06 Back: Positive for pain at rest, pain with movement, of the sacrum, left low back and right low back. 15:06 All other systems are negative. Exam: 15:06 Constitutional: This is a well developed, well nourished patient who is awake, alert, kb and in no acute distress. Head/Face: Normocephalic, atraumatic. ENT: Moist Mucous membranes Cardiovascular: Regular rate and rhythm with a normal S1 and S2. No gallops, murmurs, or rubs. No pulse deficits. Respiratory: Respirations even and unlabored. No increased work of breathing. Talking in full sentences Abdomen/GI: Soft, non-tender. No distention Skin: Warm, dry with normal turgor. Normal color. MS/ Extremity: Pulses equal, no cyanosis. Neurovascular intact. Full, normal range of motion. Neuro: Awake and alert, GCS 15, oriented to person, place, time, and situation. Moves all extremities. Normal gait. 15:06 Back: pain, that is moderate, of the sacrum, ROM is painful, normal spinal alignment noted, CVA tenderness, is absent, vertebral tenderness, is not appreciated. Vital Signs: 14:02 BP 155 / 76; Pulse 105; Resp 16; Temp 98.4; Pulse Ox 100% on R/A; Weight 85.28 kg; hb Height 5 ft. 3 in. (160.02 cm); Pain 10/10; 16:23 BP 128 / 86; Pulse 81; Resp 16; Pulse Ox 99% ; Pain 8/10; mb8 14:02 Body Mass Index 33.30 (85.28 kg, 160.02 cm) hb MDM: 14:25 Patient medically screened. kb 15:07 Data reviewed: vital signs, nurses notes. Data interpreted: Pulse oximetry: on room air kb is 100 %. Interpretation: normal. 16:43 Counseling: I had a detailed discussion with the patient and/or guardian regarding: the kb historical points, exam findings, and any diagnostic results supporting the discharge/admit diagnosis, lab results, radiology results, the need for outpatient follow up, a family practitioner, to return to the emergency department if symptoms worsen or persist or if there are any questions or concerns that arise at home. 06/09 16:09 Order name: Urine Microscopic Only; Complete Time: 16:33 kb 06/09 16:10 Order name: Urine Dipstick-Ancillary; Complete Time: 16:11 EDMS 06/09 14:34 Order name: CT Lumbar Spine Wo Con; Complete Time: 15:23 kb 06/09 14:34 Order name: Sacrum And Coccyx XRAY; Complete Time: 15:23 kb 06/09 16:39 Order name: Urine --Ancillary (enter results); Complete Time: 16:44 mb8 06/09 14:25 Order name: Urine Dipstick-Ancillary (obtain specimen); Complete Time: 16:38 kb 06/09 14:37 Order name: Urine Test (obtain specimen); Complete Time: 16:37 mb8 Administered Medications: 15:10 Drug: Ketorolac 30 mg Route: IM; Site: right deltoid; mb8 16:37 Follow up: Response: No adverse reaction mb8 15:10 Drug: [place] (HYDROcodone-acetaminophen) 10 mg-325 mg 1 tabs Route: PO; mb8 16:37 Follow up: Response: No adverse reaction 8 16:47 Drug: Decadron (dexamethasone) 10 mg Route: IM; Site: left ventrogluteal; kc6 Disposition: 17:45 Co-signature as Attending Physician, Giorgio Parra MD I agree with the assessment and kdr plan of care. Disposition Summary: 06/09/22 16:43 Discharge Ordered Location: Home kb Condition: Stable kb Diagnosis - Low back pain kb Followup: kb - With: Emergency Department - When: As needed - Reason: Worsening of condition Followup: kb - With: Private Physician - When: 2 - 3 days - Reason: Recheck today's complaints, Continuance of care, Re-evaluation by your physician Discharge Instructions: - Discharge Summary Sheet kb - Herniated Disk, [id number] kb Forms: - Medication Reconciliation Form kb - Thank You Letter kb - Antibiotic Education kb - Prescription Opioid Use kb Prescriptions: - Cyclobenzaprine 10 mg Oral Tablet - take 1 tablet by ORAL route every 8 hours As needed; 15 tablet; Refills: 0, kb Product Selection Permitted - Diclofenac Sodium 75 mg Oral tablet,delayed release (DR/EC) - take 1 tablet by ORAL route 2 times per day As needed; 30 tablet; Refills: 0, kb Product Selection Permitted Signatures: Dispatcher [employer] Ellyn Wiley, BETO-C Giorgio Sandoval MD MD kdr Ciara Bonilla, KALEIGH RN Ariana Valente RN RN kc6 Skip Beauchamp RN RN mb8
[2022-06-09 17:33] VITALS: TEMP 98.4
[2022-06-09 17:34] VITALS: BP 128/86; O2SAT 99
== END 2022-06-09 17:25 | disposition home or self-care (01) ==
LOC: ER 13:27
DX: M54.50 Low back pain, unspecified (principal); X50.0XXA Overexertion from strenuous movement or load, initial encounter; X50.9XXA Other and unspecified overexertion or strenuous movements or postures, initial encounter; Y93.89 Activity, other specified; Y92.9 Unspecified place or not applicable
CPT/HCPCS: 81025; 72131; 72220; 96372; 99283; J1100; 81003; 81015

== ENCOUNTER 2024-02-16 12:57 | Emergency (ER) | payer BC ==
[2024-02-16] MEDS ORDERED: GABAPENTIN 300 MG CAP ONE (13:32)
[2024-02-16] MEDS ORDERED: CYCLOBENZAPRINE 10 MG TAB ONE (13:33)
--- OUTSIDE RECORDS SUMMARY | 2024-02-16 13:34 | XMS REPORT | Continuity of Care Document ---
Author Name Unknown Address [address] [place] [address] [facility] thconnect Address 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 Name Role Phone KHADIJAH MOCTEZUMA Primary Care Physician Unavaila ble NATY Attending Clinician Unavailable SHASTA LASSITER Attending Clinician Unav ailable Shasta Lassiter MD Attending Clinician + RUBEN NAVARRO Attending Clinician Unavailable Ruben Mercer Attending Clinician [phone] NATY Admitting Clinician Unavailable RUBEN NAVARRO Admitting Clinician Unavailable Payers Payer Name Policy Type Policy Number Effective Date Expirati on Date Source [place] [facility] (PP[facility]) [id number] 2018 00:00:00 BCBS [facility] [id number] 2018 00:00:00 Problems Condition Name Condition Details Condition Category Status Onset Date Resolution Date Last Treatment Date Treating Clinician Comments Source Uterine leiomyoma Uterine Leiomyoma Problem Active 10-22 00:00: 00 [facility] No known active problems No known active problems Disease [facility] Allergies, Adverse Reactions, Alerts Allergy Name Allergy Type Status Severity Reaction(s) Onset Date Inactive Date Treating Clinician Comments Source NO KNOWN ALLERGIE S Drug Class Active [facility] Social History Social Habit Start Date Stop Date Quantity Comments Source Exposure to SARS-CoV-2 (event) 2022-04-10 00:00:00 2022-04-20 10:49:00 Unable to assess [facility] Sex Assigned At 1980 00:00:00 1980 00:00:00 [facility] Smoking Status Start Date Stop Date Source [facility] Tobacco smoking consumption unknown [facility] Medications Ordered Medication Name Filled Medication Name Start Date Stop Date Current Medication? Ordering Clinician Indication Dosage Frequency Signature (SIG) Comments Components Source NaCl 0.9% (NS) bolus infusion 1,000 mL 04-20 16:15: 00 04-20 17:26 :00 No 1000mL at 999 mL/hr, 1,000 mL, IV Infusion, ONCE, 1 dose, On Sat04/20/22 at 1115, [facility] acetaminoph en (TYLENOL) tablet 1,000 mg 04-20 16:15: 00 04-20 16:27 :00 No 1000mg 1,000 mg, Oral, ONCE, 1 dose, On Sat04/20/22 at 1115, [facility] diphenhydrA MINE (BENADRYL) injection 25 mg 04-20 16:15: 00 04-20 16:24 :00 No 25mg 25 mg, Slow IV Push, ONCE, 1 dose, On Sat04/20/22 at 1115, [facility] metoclopram lisa HCl (REGLAN) injection 10 mg 04-20 16:15: 00 04-20 16:26 :00 No 10mg 10 mg, Slow IV Push, ONCE, 1 dose, On Sat04/20/22 at 1115, [facility] dexamethaso ne (DECADRON PHOSPHATE) injection 10 mg 2020-08 20:30: 00 07-05 21:35 :00 No 10mg 10 mg, Intramuscu lar, ONCE, 1 dose, On Sat07/05/21 at 1430, [facility] methocarbam oL (ROBAXIN) 500 mg tablet 2020-08 00:00: 00 Yes [id number] 500mg Take 1 tablet by mouth 4 (four) times daily as needed for Pain (scale 7-10). [facility] Diclofenac Sodium (VOLTAREN) 1 % gel 2020-08 00:00: 00 Yes [id number] Apply to area(s) 2 (two) times daily. [facility] ibuprofen 800 mg tablet 2020-08 00:00: 00 Yes [id number] 800mg Take 1 tablet by mouth every 8 (eight) hours as needed for Pain (scale 4-6). [facility] lorazepam 0.5 mg tablet TAKE 1 TABLET BY MOUTH TWICE DAILY NEEDED. MAY CAUSE SEDATION lorazepam 0.5 mg tablet TAKE 1 TABLET BY MOUTH TWICE DAILY NEEDED. MAY CAUSE SEDATION No lorazepam 0.5 mg tablet TAKE 1 TABLET BY MOUTH TWICE DAILY NEEDED. MAY CAUSE SEDATION [facility] Mirena 21 mcg/24 hours (8 yrs) 52 mg intrauterin e device Take 1 device by intrauterin e route. Mirena 21 mcg/24 hours (8 yrs) 52 mg intrauterin e device Take 1 device by intrauterin e route. No 1device (s) Mirena 21 mcg/24 hours (8 yrs) 52 mg intrauteri ne device Take 1 device by intrauteri ne route. [facility] Mounjaro 7.5 mg/0.5 mL subcutaneou s pen injector Mounjaro 7.5 mg/0.5 mL subcutaneou s pen injector No Mounjaro 7.5 mg/0.5 mL subcutaneo us pen injector [facility] Vitamin D2 1,250 mcg (50,000 unit) capsule Vitamin D2 1,250 mcg (50,000 unit) capsule No Vitamin D2 1,250 mcg (50,000 unit) capsule [facility] celecoxib 100 mg capsule TAKE 1 CAPSULE BY MOUTH TWICE DAILY celecoxib 100 mg capsule TAKE 1 CAPSULE BY MOUTH TWICE DAILY No celecoxib 100 mg capsule TAKE 1 CAPSULE BY MOUTH TWICE DAILY [facility] lorazepam 0.5 mg tablet Take 2 tablets by oral route as needed. lorazepam 0.5 mg tablet Take 2 tablets by oral route as needed. No lorazepam 0.5 mg tablet Take 2 tablets by oral route as needed. [facility] Mirena 20 mcg/24 hours (7 yrs) 52 mg intrauterin e device Take 1 device by intrauterin e route. Mirena 20 mcg/24 hours (7 yrs) 52 mg intrauterin e device Take 1 device by intrauterin e route. No 1device (s) Mirena 20 mcg/24 hours (7 yrs) 52 mg intrauteri ne device Take 1 device by intrauteri ne route. [facility] sumatriptan 100 mg tablet TK 1 T PO PRN FOR HEADACHE. MAXIMUM 1 T PER DAY. sumatriptan 100 mg tablet TK 1 T PO PRN FOR HEADACHE. MAXIMUM 1 T PER DAY. No sumatripta n 100 mg tablet TK 1 T PO PRN FOR HEADACHE. MAXIMUM 1 T PER DAY. [facility] Vitamin D Vitamin D No Vitamin D [facility] lorazepam 0.5 mg tablet TAKE 1 TABLET BY MOUTH TWICE DAILY NEEDED. MAY CAUSE SEDATION lorazepam 0.5 mg tablet TAKE 1 TABLET BY MOUTH TWICE DAILY NEEDED. MAY CAUSE SEDATION No lorazepam 0.5 mg tablet TAKE 1 TABLET BY MOUTH TWICE DAILY NEEDED. MAY CAUSE SEDATION [facility] Mirena 20 mcg/24 hours (8 yrs) 52 mg intrauterin e device Take 1 device by intrauterin e route. Mirena 20 mcg/24 hours (8 yrs) 52 mg intrauterin e device Take 1 device by intrauterin e route. No 1device (s) Mirena 20 mcg/24 hours (8 yrs) 52 mg intrauteri ne device Take 1 device by intrauteri ne route. [facility] Mounjaro 2.5 mg/0.5 mL subcutaneou s pen injector INJECT 2.5 MG UNDER THE SKIN ONCE EVERY WEEK DIRECTED Mounjaro 2.5 mg/0.5 mL subcutaneou s pen injector INJECT 2.5 MG UNDER THE SKIN ONCE EVERY WEEK DIRECTED No Mounjaro 2.5 mg/0.5 mL subcutaneo us pen injector INJECT 2.5 MG UNDER THE SKIN ONCE EVERY WEEK DIRECTED [facility] Vitamin D Vitamin D No Vitamin D [facility] [place] Vital Signs Vital Name Observation Time Observation Value Comments S ource BP Diastolic 2023-07-04 00:00:00 87 mm[Hg] [facility] BP Systolic 2023-07-04 00:00:00 124 mm[Hg] [facility] Height 2023-07-04 00:00:00 63 [in_i] [facility] BMI (Body Mass Index) 2023-07-04 00:00:00 28 [facility]m2 [facility] Body Weight 2023-07-04 00:00:00 158 [lb_av] [facility] BP Diastolic 2022-07-04 00:00:00 84 mm[Hg] [facility] Height 2022-07-04 00:00:00 63 [in_i] [facility] BMI (Body Mass Index) 2022-07-04 00:00:00 32.2 kg/m2 [facility] BP Systolic 2022-07-04 00:00:00 127 mm[Hg] [facility] Body Weight 2022-07-04 00:00:00 182 [lb_av] [facility] Systolic blood pressure 2022-04-20 15:51:00 148 mm[Hg] [facility] Diastolic blood pressure 2022-04-20 15:51:00 105 mm[Hg] [facility] Heart rate 2022-04-20 15:51:00 105 /min [facility] Body temperature 2022-04-20 15:51:00 36.44 Mel [facility] Respiratory rate 2022-04-20 15:51:00 18 /min [facility] Body weight 2022-04-20 15:51:00 85.276 kg [facility] Oxygen saturation in Arterial blood by Pulse oximetry 2022-04-20 15:51:00 99 /min [facility] Systolic blood pressure 2021-07-05 21:33:39 150 mm[Hg] [facility] Diastolic blood pressure 2021-07-05 21:33:39 95 mm[Hg] [facility] Heart rate 2021-07-05 21:33:39 87 /min [facility] Respiratory rate 2021-07-05 21:33:39 16 /min [facility] Oxygen saturation in Arterial blood by Pulse oximetry 2021-07-05 21:33:39 100 /min [facility] Body temperature 2021-07-05 18:28:00 37.17 Mel [facility] Body weight 2021-07-05 18:28:00 85.276 kg [facility] BP Diastolic 2021-07-04 00:00:00 101 mm[Hg] [place] [facility] Height 2021-07-04 00:00:00 63 [in_i] [facility] BMI (Body Mass Index) 2021-07-04 00:00:00 33.5 kg/m2 [facility] BP Systolic 2021-07-04 00:00:00 143 mm[Hg] [place] [facility] Body Weight 2021-07-04 00:00:00 189 [lb_av] [place] [facility] BMI (Body Mass Index) 2020-10-17 00:00:00 34.4 kg/m2 [facility] BP Systolic 2020-10-17 00:00:00 134 mm[Hg] [place] [facility] Body Weight 2020-10-17 00:00:00 194 [lb_av] [place] [facility] BP Diastolic 2020-10-17 00:00:00 90 mm[Hg] [facility] [place] Height 2020-10-17 00:00:00 63 [in_i] [facility] Height 2020-06-30 00:00:00 63 [in_i] [facility] BMI (Body Mass Index) 2020-06-30 00:00:00 34.5 kg/m2 [facility] Body Weight 2020-06-30 00:00:00 195 [lb_av] [facility] Procedures Procedure Date / Time Performed Performing Clinician Source MAMMO, screening, digital, bilateral 2022-07-04 00:00:00 [facility] CONSENT/REFUSAL FOR DIAGNOSIS AND TREATMENT 2022-04-20 15:49:42 Doctor Unassigned, [place] [facility] XR CERVICAL SPINE 3 VW 2021-07-05 19:34:59 Therese Navarro [facility] NOTICE OF PRIVACY PRACTICES 2021-07-05 17:42:01 Doctor Unassigned, [place] [facility] MAMMO, screening, digital, bilateral 2021-07-04 00:00:00 [facility] US, transvaginal 2020-10-17 00:00:00 [facility] MAMMO, screening, bilateral 2020-06-30 00:00:00 [facility] Cholecystectomy 2019-04-26 00:00:00 [facility] Delivery [facility] Plan of Care Planned Activity Planned Date Details Comments Source Diagnostic Test Pending 2023-07-04 00:00:00 cytology report, thin prep, smear or scraping, cervical or vaginal [code = cytology report, thin prep, smear or scraping, cervical or vaginal] [facility] Diagnostic Test Pending 2023-07-04 00:00:00 CBC w/ auto diff [code = CBC w/ auto diff] [facility] Diagnostic Test Pending 2023-07-04 00:00:00 CMP, serum or plasma [code = CMP, serum or plasma] [facility] Diagnostic Test Pending 2023-07-04 00:00:00 vitamin D, 25-hydroxy, total, serum [code = vitamin D, 25-hydroxy, total, serum] [facility] Diagnostic Test Pending 2023-07-04 00:00:00 RPR (rapid plasma reagin), serum [code = RPR (rapid plasma reagin), serum] [facility] Diagnostic Test Pending 2023-07-04 00:00:00 HBsAg (hepatitis B surface Ag), EIA, serum [code = HBsAg (hepatitis B surface Ag), EIA, serum] [facility] Diagnostic Test Pending 2023-07-04 00:00:00 HIV 1 + 2, meaningful use set [code = HIV 1 + 2, meaningful use set] [facility] Diagnostic Test Pending 2023-07-04 00:00:00 TSH + free T4, serum [code = TSH + free T4, serum] [facility] Diagnostic Test Pending 2023-07-04 00:00:00 lipid panel, serum [code = lipid panel, serum] [facility] Diagnostic Test Pending 2023-07-04 00:00:00 testosterone, free + total, serum [code = testosterone, free + total, serum] [facility] Diagnostic Test Pending 2023-07-04 00:00:00 estradiol, serum [code = estradiol, serum] [facility] Diagnostic Test Pending 2023-07-04 00:00:00 progesterone, serum [code = progesterone, serum] [facility] Diagnostic Test Pending 2023-07-04 00:00:00 lh + FSH, serum [code = lh + FSH, serum] [facility] Encounters Start Date/Time End Date/Time Encounter Type Admission Type Attending [facility] Care Department Encounter ID Source 2023-07-08 00:00:00 2023-07-08 00:00:00 Outpatient LISTER_MELI [facility] [id number] [facility] 2023-07-04 00:00:00 2023-07-04 00:00:00 Outpatient LISTER_MELI [facility] [id number] [facility] 2023-07-04 00:00:00 2023-07-04 00:00:00 Thea Shipman, CW OPERATOR: [address], [place] [address] , [facility]. [facility] - [facility] [employer] [id number] [facility] 2023-07-02 00:00:00 2023-07-02 00:00:00 Outpatient LISTER_MELI [facility] [id number] [facility] 2022-07-04 00:00:00 2022-07-04 00:00:00 Outpatient LISTER_MELI [facility] [id number] [facility] 2022-07-04 00:00:00 2022-07-04 00:00:00 Thea Shipman, CW OPERATOR: [address], [place] [address] , [facility]. [facility] [employer] [id number] [facility] 2022-04-20 10:53:00 2022-04-20 12:58:00 Emergency X SHASTA LASSITER [facility] ERT [id number] [facility] 2022-04-20 10:53:00 2022-04-20 12:58:00 Emergency AufdlynnShasta gonzalez [facility] ..[id number] [facility] 2021-07-05 12:30:00 2021-07-05 16:08:00 Emergency X RAMONRUBEN LEMUS [facility] ERT [id number] [facility] 2021-07-05 12:30:00 2021-07-05 16:08:00 Emergency Ramon Ruben Mervat [facility] ..[id number] [facility] 2021-07-04 11:39:00 2021-07-04 11:39:00 Outpatient LISTER_MELI [facility] [id number] [facility] 2021-07-04 00:00:00 2021-07-04 00:00:00 Thea Shipman, CW OPERATOR: [address], [place] [address] , Ph. [facility] Garrard Manda[facility] [employer] [place] [id number] [facility] 2021-07-02 12:10:00 2021-07-02 12:10:00 Outpatient LISTER_MELI [facility] [id number] [facility] 2021-05-03 12:08:00 2021-05-03 12:08:00 Outpatient LISTER_MELI [facility] [id number] [facility] 2020-10-17 02:21:00 2020-10-17 02:21:00 Outpatient LISTER_MELI [facility] [id number] [facility] 2020-10-17 00:00:00 2020-10-17 00:00:00 Thea Shipman, CW OPERATOR: [address], [place] [address] , Ph. [facility] Garrard Mandaen [employer] [place] [id number] [facility] 2020-06-30 04:46:00 2020-06-30 04:46:00 Outpatient LISTER_MELI SSA [facility] [id number] [facility] 2020-06-30 04:46:00 2020-06-30 04:46:00 Outpatient LISTER_MELI [facility] [id number] [facility] 2020-06-30 00:00:00 2020-06-30 00:00:00 Thea Shipman, CW OPERATOR: [address] [place] [address] , Ph. [facility] - [facility] [employer] [id number] [facility] 2020-05-31 01:23:00 2020-05-31 01:23:00 [facility] [id number] [facility] Results Test Description Test Time Test Comments Results Result Co mments Source [facility] Differential panel - Blood 2022-07-05 00:00:00* Test Item Value Reference Range Interpretation Comme nts Leukocytes [#/volume] in Blo od by Automated count (test code = 6690-2) 8.7 x10e3/uL 3.4-10.8 Erythrocytes [#/volume] in Blood by Automated count (test code = 789-8) 4.78 x10e6/uL 3.77-5.28 Hemoglobin [Mass/volume] in Blood (test code = 718-7) 14.6 g/dL 11.1-15.9 Hematocrit [Volume Fraction] of Blood by Automated count (test code = 4544-3) 44.0 % 34.0-46.6 Erythrocyte mean corpuscular volume [Entitic volume] by Automated count (test code = 787-2) 92 fL 79-97 Erythrocyte mean corpuscular hemoglobin [Entitic mass] by Automated count (test code = 785-6) 30.5 pg 26.6-33.0 Erythrocyte mean corpuscular hemoglobin concentration [Mass/volume] by Automated count (test code = 786-4) 33.2 g/dL 31.5-35.7 Erythrocyte distribution wid th [Ratio] by Automated count (test code = 788-0) 12.5 % 11.7-15.4 Platelets [#/volume] in Bloo d by Automated count (test code = 777-3) 337 x10e3/uL 150-450 Neutrophils/100 leukocytes i n Blood by Automated count (test code = 770-8) 67 % not estab. Lymphocytes/100 leukocytes i n Blood by Automated count (test code = 736-9) 23 % not estab. Monocytes/100 leukocytes in Blood by Automated count (test code = 5905-5) 7 % not estab. Eosinophils/100 leukocytes i n Blood by Automated count (test code = 713-8) 2 % not estab. Basophils/100 leukocytes in Blood by Automated count (test code = 706-2) 1 % not estab. 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 Program[facility] 2000 panel - Serum or [id number] 00:00:00* Test Item Value Reference Range Interpretation Comme nts Glucose [Mass/volume] in Ser um or Plasma (test code = 2345-7) 92 mg/dL 70-99 Urea nitrogen [Mass/volume] in Serum or Plasma (test code = 3094-0) 10 mg/dL 6-24 Creatinine [Mass/volume] in Serum or Plasma (test code = 2160-0) 0.82 mg/dL 0.57-1.00 eGFR (test code = eGFR) 92 mL/min/1.73 >59 Urea nitrogen/Creatinine [Ma ss Ratio] in Serum or Plasma (test code = 3097-3) 12 9-23 Sodium [Moles/volume] in Ser um or Plasma (test code = 2951-2) 138 mmol/L 134-144 Potassium [Moles/volume] in Serum or Plasma (test code = 2823-3) 5.3 mmol/L 3.5-5.2 H Chloride [Moles/volume] in Serum or Plasma (test code = 2075-0) 102 mmol/L 96-106 Carbon dioxide, total [Moles/volume] in Serum or Plasma (test code = 2027-9) 22 mmol/L 20-29 Calcium [Mass/volume] in Ser um or Plasma (test code = 53475-2) 9.6 mg/dL 8.7-10.2 Protein [Mass/volume] in Ser um or Plasma (test code = 2885-2) 7.1 g/dL 6.0-8.5 Albumin [Mass/volume] in Ser um or Plasma (test code = 1751-7) 5.0 g/dL 3.8-4.8 H Globulin [Mass/volume] in Serum by calculation (test code = 79427-8) 2.1 g/dL 1.5-4.5 Albumin/Globulin [Mass Ratio ] in Serum or Plasma (test code = 1759-0) 2.4 1.2-2.2 H Bilirubin.total [Mass/volume ] in Serum or Plasma (test code = 1974-2) 0.5 mg/dL 0.0-1.2 Alkaline phosphatase [Enzymatic activity/volume] in Serum or Plasma (test code = 6768-6) 73 IU/L 44-121 Aspartate aminotransferase [Enzymatic activity/volume] in Serum or Plasma (test code = 1920-8) 12 IU/L 0-40 Alanine aminotransferase [Enzymatic activity/volume] in Serum or Plasma (test code = 1742-6) 12 IU/L 0-32 [facility] - Serum or Plasma 2022-07-05 00:00:00* Test Item Value Reference Range Interpretation Comme nts Cholesterol [Mass/volume] in Serum or Plasma (test code = 2093-3) 166 mg/dL 100-199 Triglyceride [Mass/volume] i n Serum or Plasma (test code = 2571-8) 125 mg/dL 0-149 Cholesterol in HDL [Mass/vol ume] in Serum or Plasma (test code = 2085-9) 35 mg/dL >39 L Cholesterol in VLDL [Mass/vo lume] in Serum or Plasma by calculation (test code = 14335-9) 23 mg/dL 5-40 Cholesterol in LDL [Mass/vol ume] in Serum or Plasma by calculation (test code = 64203-0) 108 mg/dL 0-99 H Laboratory comment [Text] in Report Narrative (test code = 36425-6) domestic cleaner [facility] ProgramReagin Ab [Presence] in Serum by RPR 2022-07-05 00:00:00* Test Item Value Reference Range Interpretation Comme nts Reagin Ab [Presence] in Seru m by RPR (test code = 42941-6) non reactive non reactive [facility] [id number] D3+25- Hydroxyvitamin D2 [Mass/volume] in Serum or [id number] 00:00:00* Test Item Value Reference Range Interpretation Comme nts 25-Hydroxyvitamin D3+25-Hydroxyvitamin D2 [Mass/volume] in Serum or Plasma (test code = 44963-0) 54.1 NG/mL 30.0-100.0 [facility] ProgramHIV 1 and 2 tests - Meaningful Use [id number] 00:00:00* Test Item Value Reference Range Interpretation Comme nts HIV 1+2 Ab+HIV1 p24 Ag [Presence] in Serum or Plasma by Immunoassay (test code = 67209-1) non reactive non reactive [facility] ProgramHepatitis B virus surface Ag [Presence] in Serum or Plasma by [id number] 00:00:00* Test Item Value Reference Range Interpretation Comme nts Hepatitis B virus surface Ag [Presence] in Serum or Plasma by Immunoassay (test code = 5196-1) negative negative [facility] Programcardiovascular assessment panel, [id number] 00:00:00* Test Item Value Reference Range Interpretation Comme nts Interpretation and review of laboratory results (test code = 82427-6) note Report (test code = 99065-4) . [facility]
--- NOTE | 2024-02-16 14:09 | RAD REPORT ---
EXAM DESCRIPTION: CT - C Spine Wo Con - 02/16/2024 1:52 pm CLINICAL HISTORY: Pain;Radiculopathy COMPARISON: No comparisons TECHNIQUE: CT Scan was obtained of the cervical spine without contrast. Reformats were provided in t he sagittal and coronal plane. FINDINGS: No acute fracture of the cervical spine. No traumatic malalignment. No prevertebral edema. No suspicious thyroid nodules or lymphadenopathy. The lung apices are clear. Loss of the normal cervical lordosis. Mild cervical spondylosis with evidence of neural foraminal fidel rowing bilaterally. This includes moderate neural foraminal narrowing on the left at C3-4. Mild neura l foraminal narrowing is present at other levels. A posterior disc osteophyte complex is present at C 5-6 but no evidence of clinically significant central spinal stenosis . IMPRESSION: No fracture or traumatic malalignment of the cervical spine. Cervical spondylosis with e vidence of neural foraminal narrowing. No clinically significant central spinal stenosis identified.
--- NOTE | 2024-02-16 15:03 | EDPHYS ---
Physician Documentation [facility] Name: Negrita Traylor Age: 43 yrs Sex: Female : 1980 Arrival Date: 02/16/2024 Time: 12:57 Bed 12 Private MD: ED Physician Mark Ely HPI: 02/15 18:22 This 43 yrs old Female presents to ER via Ambulatory with complaints of Neck Pain. sb4 18:23 Patient states that she has been experiencing neck pain and stiffness for about 2 weeks sb4 now. She has seen her chiropractor who has adjusted her several times and she has been taking ibuprofen every day but states that it will not go away. She states the pain radiates down both of her arms. She denies any known specific injury. States that she was caring heavy backpack a few on a trip a couple weeks. Historical: - Allergies: 13:03 No Known Allergies; ll1 - PMHx: 13:03 gall stone; ll1 - PSHx: 13:03 section; Cholecystectomy; ll1 - Immunization history:: Adult Immunizations up to date. - Infectious Disease History:: Denies. - Social history:: Smoking status: Patient denies any tobacco usage or history of. ROS: 18:23 Constitutional: Negative for fever, chills, and weight loss, sb4 18:23 Neck: Positive for pain with movement, stiffness, 18:23 All other systems are negative, Exam: 18:23 Constitutional: This is a well developed, well nourished patient who is awake, alert, sb4 and in no acute distress. Head/Face: Normocephalic, atraumatic. Eyes: Extra-ocular motions intact. Periorbital areas with no swelling, redness, or edema. ENT: Mucous membranes moist. 18:23 Neck: External neck: no acute changes, ROM/movement: pain, that is mild, with rotation to the left, with rotation to the right, Meningeal signs: are not present, nuchal rigidity, is not appreciated, 18:23 Skin: Warm, dry with normal turgor. Normal color with no rashes, no lesions, and no sb4 evidence of cellulitis. Vital Signs: 13:03 BP 140 / 79; Pulse 86; Resp 17; Temp 98.2; Pulse Ox 100% ; Weight 72.57 kg; Height 5 ll1 ft. 3 in. ; Pain 5/10; 13:29 BP 151 / 91; Pulse 97; Resp 17; Pulse Ox 100% on R/A; Pain 6/10; al5 13:03 Body Mass Index 28.34 (72.57 kg, 160.02 cm) ll1 13:03 Pain Scale: Adult ll1 13:29 Pain Scale: Adult al5 MDM: 13:04 Patient medically screened. sb4 18:23 Data reviewed: vital signs, nurses notes, radiologic studies, and as a result, I will sb4 discharge patient. Counseling: I had a detailed discussion with the patient and/or guardian regarding the historical points, exam findings, and any diagnostic results supporting the discharge/admit diagnosis, radiology results, to return to the emergency department if symptoms worsen or persist or if there are any questions or concerns that arise at home. 02/15 13:25 Order name: CT C Spine; Complete Time: 14:17 sb4 Administered Medications: 13:36 Drug: Gabapentin PO 300 mg PO once Route: PO; al5 15:24 Follow up: Response: No adverse reaction al5 13:36 Drug: Cyclobenzaprine PO 10 mg PO once Route: PO; al5 15:24 Follow up: Response: No adverse reaction al5 Disposition: 19:29 Co-signature as Attending Physician, Mark Ely MD I reviewed the patient's care rt provided by the Advanced Practice Provider and agree with the diagnosis and treatment plan. Disposition Summary: 02/16/24 15:02 Discharge Ordered Notes: Location: Home sb4 Problem: new sb4 Symptoms: are unchanged sb4 Condition: Stable sb4 Diagnosis - Radiculopathy, cervical region sb4 Followup: sb4 - With: Emergency Department - When: As needed - Reason: Trouble breathing, Worsening of condition Discharge Instructions: - Discharge Summary Sheet sb4 - Pinched Nerve sb4 Forms: - Prescription Opioid Use sb4 - Patient Portal Instructions sb4 - Leadership Thank You Letter sb4 Prescriptions: - gabapentin 100 mg Oral capsule - take 2 capsule ORAL route every 8 hours; 30 capsule; Refills: 0, Product sb4 Selection Permitted - Cyclobenzaprine 10 mg Oral Tablet - take 1 tablet ORAL route every 8 hours As needed; 30 tablet; Refills: 0, sb4 Product Selection Permitted - Medrol (Abldomero) 4 mg Oral Tablets, Dose Pack - take 1 tablet ORAL route as directed - follow package instructions; 1 packet; sb4 Refills: 0, Product Selection Permitted Signatures: Dispatcher [employer] Eusebia Wade, RN RN ll1 Tram Yap PA-C PA-C sb4 Mark Ely MD MD rt Brandie Boudreaux RN RN al5
--- NOTE | 2024-02-16 15:03 | ER ---
Nurse's Notes [facility] Name: Negrita Traylor Age: 43 yrs Sex: Female : 1980 Arrival Date: 02/16/2024 Time: 12:57 Bed 12 Private MD: Diagnosis: Radiculopathy, cervical region Presentation: 02/15 13:03 Chief complaint: Patient states: Neck and joint pains off/on for 2 weeks. No fever. ll1 Coronavirus screen: Client denies travel out of the [place] in the last 14 days. Ebola Screen: Patient denies travel to an Ebola-affected area in the 21 days before illness onset. Acute neurological deficit: none identified. Initial Sepsis Screen: Does the patient meet any 2 criteria? No. Patient's initial sepsis screen is negative. Does the patient have a suspected source of infection? No. Patient's initial sepsis screen is negative. Risk Assessment: Do you want to hurt yourself or someone else? Patient reports no desire to harm self or others. Onset of symptoms was February 02, 2024. 13:03 Method Of Arrival: Ambulatory 1 13:03 Acuity: ZURI 4 ll1 Triage Assessment: 13:07 General: Appears uncomfortable, Behavior is calm, cooperative, appropriate for age. ll1 Pain: Complains of pain in neck Pain currently is 5 out of 10 on a pain scale. Quality of pain is described as aching. Musculoskeletal: Circulation, motion, and sensation intact. Capillary refill < 3 seconds, Reports pain in neck. Historical: - Allergies: 13:03 No Known Allergies; ll1 - PMHx: 13:03 gall stone; ll1 - PSHx: 13:03 section; Cholecystectomy; ll1 - Immunization history:: Adult Immunizations up to date. - Infectious Disease History:: Denies. - Social history:: Smoking status: Patient denies any tobacco usage or history of. Screenin:29 [facility] ED Fall Risk Assessment (Adult) History of falling in the last 3 months, al5 including since admission No falls in past 3 months (0 pts) Confusion or Disorientation No (0 pts) Intoxicated or Sedated No (0 pts) Impaired Gait No (0 pts) Mobility Assist Device Used No (0 pt) Altered Elimination No (0 pt) Score/Fall Risk Level 0 - 2 = Low Risk Oriented to surroundings, Maintained a safe environment, Hourly rounding (assess needs \T\ fall precautionary measures) done. Abuse screen: Denies threats or abuse. Denies injuries from another. Nutritional screening: No deficits noted. Tuberculosis screening: No symptoms or risk factors identified. Assessment: 13:27 General: Appears in no apparent distress. Behavior is calm, cooperative. Pain: al5 Complains of pain in neck, back, wrists, ankles Is continuous. Neuro: No deficits noted. Level of Consciousness is awake, alert, obeys commands, Oriented to person, place, time, situation, Gait is steady, Speech is normal, Facial symmetry appears normal. Cardiovascular: No deficits noted. Denies chest pain, shortness of breath, Patient's skin is warm and dry. Respiratory: No deficits noted. Airway is patent Trachea midline Respiratory effort is even, unlabored, Respiratory pattern is regular, symmetrical. Derm: No deficits noted. Skin is intact, Skin is pink, warm \T\ dry. normal. Musculoskeletal: Reports pain in neck, back, ankles, wrists Pain is 6 out of 10 on a pain scale. Vital Signs: 13:03 BP 140 / 79; Pulse 86; Resp 17; Temp 98.2; Pulse Ox 100% ; Weight 72.57 kg; Height 5 ll1 ft. 3 in. ; Pain 5/10; 13:29 BP 151 / 91; Pulse 97; Resp 17; Pulse Ox 100% on R/A; Pain 6/10; al5 13:03 Body Mass Index 28.34 (72.57 kg, 160.02 cm) ll1 13:03 Pain Scale: Adult ll1 13:29 Pain Scale: Adult al5 ED Course: 13:02 Patient arrived in ED. mg5 13:03 Arm band placed on. ll1 13:04 Tram Yap PA-C is PHCP. sb4 13:04 Mark Ely MD is Attending Physician. sb4 13:06 Triage completed. ll1 13:20 Brandie Boudreaux, KALEIGH is Primary Nurse. al5 13:[address] Scan. al5 13:30 Patient has correct armband on for positive identification. Bed in low position. Call al5 light in reach. 13:53 CT C Spine In Process Unspecified. EDMS 15:24 Provided Education on: follow-up instructions. al5 15:24 No provider procedures requiring assistance completed. Patient did not have IV access al5 during this emergency room visit. Administered Medications: 13:36 Drug: Gabapentin PO 300 mg PO once Route: PO; al5 15:24 Follow up: Response: No adverse reaction al5 13:36 Drug: Cyclobenzaprine PO 10 mg PO once Route: PO; al5 15:24 Follow up: Response: No adverse reaction al5 Medication: 15:24 VIS not applicable for this client. al5 Outcome: 15:02 Discharge ordered by . sb4 15:24 Discharged to home ambulatory, al5 15:24 Condition: good 15:24 Discharge instructions given to patient, Instructed on discharge instructions, follow up and referral plans. medication usage, Demonstrated understanding of instructions, follow-up care, medications, Prescriptions given X 3, 15:24 Patient left the ED. al5 Signatures: Dispatcher [employer] EDMS Eusebia Burnett RN RN ll1 Tram Yap PA-C PAMarcos brown4 Huong Mendez mg5 Brandie Boudreaux RN RN al5
[2024-02-16 19:34] VITALS: BP 151/91; TEMP 98.2; O2SAT 100
== END 2024-02-16 15:24 | disposition home or self-care (01) ==
LOC: ER 12:57
DX: M54.12 Radiculopathy, cervical region (principal)
CPT/HCPCS: 72125; 99283